=== PATIENT | male | born 1965 | race African-American/Black ===

== ENCOUNTER 2018-09-04 10:17 | Outpatient (CLI) | payer MEDICARE, MEDICAID ==
[2018-09-04 11:22] LABS: #Lymphocytes 1.5 thou/uL (1.20-3.40); #Monocytes 0.5 thou/uL (0.11-0.59); %Basophils 0.2 % (0.0-1.0); %Eosinophils 0.4 % (0.0-10.0); %Lymphocytes 24.7 % (21.0-51.0); %Monocytes 8.4 % (0.0-10.0); %Neutrophils 66.3 % (42.0-75.0); Hemoglobin 13.1 g/dL (14.0-18.0); Mean Corpuscular Hemoglobin 28.8 pg (27.0-31.0); Mean Corpuscular Volume 89.8 fL (78.0-98.0); Mean Platelet Volume 7.1 fL (7.4-10.4); Platelet Count 332 thou/uL (130-400); RBC Distribution Width 11.4 % (11.5-14.5); Red Blood Cell (RBC) Count 4.55 mill/uL (4.70-6.10)
[2018-09-04 11:49] LABS: ALT (SGPT) 8 U/L (8-55); AST (SGOT) 16 U/L (5-34); Albumin 4.2 g/dL (3.5-5.0); Alkaline Phosphatase 69 U/L (40-150); Anion Gap 10 mmol/L (10-20); BUN (Urea Nitrogen) 15 mg/dL (8.4-25.7); Bilirubin, Total 0.4 mg/dL (0.2-1.2); Calc. Creatinine Clearance 0 mL/min (70-130); Calcium 9.8 mg/dL (7.8-10.44); Carbon Dioxide 28 mmol/L (22-29); Chloride 105 mmol/L (98-107); Estimated GFR-MDRD Greater than 90; Globulin 2.8 g/dL (2.4-3.5); Glucose 151 mg/dL (70-105); Potassium 4.2 mmol/L (3.5-5.1); Sodium 139 mmol/L (136-145)
== END 2018-09-04 10:18 | disposition home or self-care (01) ==
LOC: LABBT 10:17
PROVIDERS: ATTEND Surgery
DX: Z01.818 Encounter for other preprocedural examination (principal); K40.90 Unilateral inguinal hernia, without obstruction or gangrene, not specified as recurrent
CPT/HCPCS: 80053; 85025; 93005; 93010

== ENCOUNTER 2018-09-06 09:59 | Day surgery (SDC) | payer MEDICARE, MEDICAID ==
[2018-09-04 10:36] VITALS: BMI 19.8
[2018-09-06] MEDS ORDERED: Bupivacaine/Epinephrine 0.25% 30 ML VIAL ONE (11:45)
[2018-09-06] MEDS ORDERED: Lidocaine 2% Jelly 5 ML TUBE ONE (11:45)
[2018-09-06] MEDS ORDERED: Bupivacaine PF 0.5% 30 ML VIAL ONE (11:45)
[2018-09-06] MEDS ORDERED: Lidocaine 2% PF 5 ML VIAL ONE (11:46)
[2018-09-06] MEDS ORDERED: Morphine 4 MG/ML VIAL ONE (12:14)
[2018-09-06] MEDS ORDERED: Fentanyl 100 MCG/2 ML VIAL ONE (12:14)
[2018-09-06] MEDS ORDERED: HYDROcodone/Acetaminophen 5/325 mg Tablet ONE (15:23)
[2018-09-06] MEDS ORDERED: Lidocaine 1% PF 5 ML VIAL ONE (16:46)
[2018-09-06] MEDS ORDERED: Ondansetron PF 4 MG/2 ML Vial ONE (16:46)
[2018-09-06] MEDS ORDERED: Rocuronium Bromide 10 MG/ML (10ML VIAL) ONE (16:46)
[2018-09-06] MEDS ORDERED: Glycopyrrolate 0.2 MG/ML 5 ML SYRINGE ONE (16:46)
[2018-09-06] MEDS ORDERED: PROPOFOL 200 MG/20 ML VIAL ONE (16:46)
--- NOTE | 2018-09-06 22:24 | OP ---
DATE OF PROCEDURE: 09/06/2018 PREOPERATIVE DIAGNOSIS: Right inguinal hernia. POSTOPERATIVE DIAGNOSIS: Right inguinal hernia. PROCEDURE PERFORMED: Right inguinal hernia repair with mesh. ANESTHESIA: General. ESTIMATED BLOOD LOSS: Minimal. COMPLICATIONS: None. SPECIMEN: None. FINDINGS: Right inguinal hernia. DESCRIPTION OF PROCEDURE: The patient was taken to the operating room and laid supine on the operating room table. After general anesthetic was obtained, bilateral groins and abdomen were shaved, prepped, and draped in a sterile fashion. An oblique incision was made above the pubic tubercle in the right lower quadrant. Cautery was dissected down through the Manuela's to expose the external oblique. External oblique fibers were opened along the course to the external ring. The contents in the inguinal canal were dissected from the backside of the external oblique. The cord structures were mobilized from the pubic tubercle using a Oliva drain. Dissection superiorly and medially on the cord showed to be a large indirect hernia sac. As the cord structures were skeletonized, the indirect sac was dissected away from other cord structures. It was dunked back into the preperitoneal space through the internal ring. The preperitoneal space was bluntly dissected through the internal ring using an unraveled Ray-Tara. PHS extended mesh was brought into the sterile field. The underlay was placed in the preperitoneal space through the internal ring. The mesh anteriorly was laid out to cover the floor of inguinal canal. It was cut laterally to incorporate the internal ring. The mesh was sewn laterally to the shelving edge of inguinal ligament distally to the pubic tubercle, medially to the transverse arch using permanent braided suture. The two ends of the cut mesh were reapproximated at the shelving edge of inguinal ligament to reform the structure. The wound was irrigated. Local anesthetic was applied. Tunneled catheter for postop pain was started from above the incision, left on top of the mesh. The external oblique was closed using Vicryl as were the subcutaneous tissues. The wound was closed using 4-0 Monocryl and Dermabond. The patient was sent to Recovery in stable condition. All instrument counts, needle counts, and lap counts were correct. Job ID: [id number]
== END 2018-09-06 18:59 | disposition home or self-care (01) ==
LOC: SDC 09:59
PROVIDERS: ATTEND Surgery
PROC: 0YU50JZ Supplement Right Inguinal Region with Synthetic Substitute, Open Approach (ICD-10-PCS; principal; 2018-09-06)
DX: K40.90 Unilateral inguinal hernia, without obstruction or gangrene, not specified as recurrent (principal); F79 Unspecified intellectual disabilities
CPT/HCPCS: A4306; C1781; J0690; J2001; J2270; J2405; J2704; J3010; S0020